=== PATIENT | male | born 1945 | race Two or more races ===

== ENCOUNTER → 2020-04-25 | Outpatient (CLI) | payer OTHER ==
[2020-04-25 11:53] LABS: Basophils # (auto) 0 10 ^3/uL (0-0.2); Basophils % (auto) 0.6 % (0.0-2.0); Eosinophils # (auto) 0 10 ^3/uL (0-0.8); Eosinophils % (auto) 0.5 % (0.0-7.0); Hematocrit 41.2 % (41.0-53.0); Hemoglobin 14.1 g/dL (13.5-17.5); Lymphocytes # (auto) 1.9 10 ^3/uL (0.4-5.4); Lymphocytes % (auto) 26.6 % (10.0-50.0); Mean Corpuscular Hemoglobin 30.6 pg (28.0-32.0); Mean Corpuscular Hgb Conc. 34.3 g/dL (32.0-36.0); Mean Corpuscular Volume 89.5 fL (80.0-100.0); Monocytes # (auto) 0.3 10 ^3/uL (0-1.3); Monocytes % (auto) 4.7 % (0.0-12.0); Neutrophils # (auto) 4.7 10 ^3/uL (1.6-8.6); Neutrophils % (auto) 67.6 % (37.0-80.0); Nucleated Red Blood Cells % 0.1 %; Platelet Count (auto) 285 10^3/uL (140-450); Red Blood Cells 4.61 10^6/uL (4.5-5.90); Red Cell Distribution Width 14.4 % (11.8-14.3)
[2020-04-25 12:29] LABS: Potassium 4.1 mmol/L (3.5-5.1)
[2020-04-25 12:47] LABS: Albumin 3.8 g/dL (3.4-5.0); BUN/Creatinine Ratio 11.4; Bilirubin, Total 0.8 mg/dL (0.2-1.0); Calcium 8.9 mg/dL (8.5-10.1); Total Protein 7.8 g/dL (6.4-8.2)
[2020-04-26 11:21] LABS: Urine Bacteria NONE SEEN /hpf (None Seen); Urine Blood Negative /uL (Negative); Urine Specific Gravity 1.007 (1.001-1.035); Urine Sperm PRESENT /hpf (None Seen); Urine WBC 2 /hpf (0 - 3)
== END | disposition home or self-care (01) ==
LOC: LAB 11:33
PROVIDERS: ATTEND Internal Medicine
DX: Z12.5 Encounter for screening for malignant neoplasm of prostate (principal); I10 Essential (primary) hypertension; E11.9 Type 2 diabetes mellitus without complications; E78.5 Hyperlipidemia, unspecified
CPT/HCPCS: 36415; 80053; 80061; 81001; 82150; 82270; 83036; 83690; 84153; 84443; 85025

== ENCOUNTER → 2020-08-19 | Outpatient (CLI) | payer OTHER | END | disposition home or self-care (01) | LOC: LAB 15:37 | PROVIDERS: ATTEND Internal Medicine | DX: R73.03 Prediabetes (principal) | CPT/HCPCS: 36415; 83036 ==

== ENCOUNTER 2020-09-02 11:02 | Day surgery (SDC) | payer OTHER ==
[2020-08-30 11:02] LABS: Basophils # (auto) 0 10 ^3/uL (0-0.2); Basophils % (auto) 0.6 % (0.0-2.0); Eosinophils # (auto) 0.1 10 ^3/uL (0-0.8); Eosinophils % (auto) 1.1 % (0.0-7.0); Hematocrit 41.5 % (41.0-53.0); Hemoglobin 14.5 g/dL (13.5-17.5); Lymphocytes # (auto) 2.7 10 ^3/uL (0.4-5.4); Lymphocytes % (auto) 37.5 % (10.0-50.0); Mean Corpuscular Hgb Conc. 34.9 g/dL (32.0-36.0); Mean Corpuscular Volume 88.8 fL (80.0-100.0); Monocytes # (auto) 0.4 10 ^3/uL (0-1.3); Neutrophils % (auto) 54.8 % (37.0-80.0); Nucleated Red Blood Cells % 0.2 %; Platelet Count (auto) 229 10^3/uL (140-450); Red Blood Cells 4.67 10^6/uL (4.5-5.90); Red Cell Distribution Width 14.6 % (11.8-14.3); White Blood Cell 7.3 10^3/uL (4.4-10.8)
[2020-08-30 11:14] LABS: INR 1.02 (0.9-1.15); Partial Thromboplastin Time 29.6 sec (23.0-31.2)
[2020-08-30 11:25] LABS: Albumin 3.8 g/dL (3.4-5.0); Calcium 9.1 mg/dL (8.5-10.1); Potassium 4.2 mmol/L (3.5-5.1)
[2020-08-30 11:28] LABS: BUN/Creatinine Ratio 16.8; Bilirubin, Total 1.1 mg/dL (0.2-1.0); Total Protein 7.8 g/dL (6.4-8.2)
[~2020-09-02] VITALS: Ht 165.1 cm; Wt 77.1 kg
[~2020-09-02 11:02] MED LIST: TRAZ150T84 PO
[2020-09-02] MEDS: fentaNYL CITRATE 100 MCG/2 ML VL ONE ×2 (12:28→12:32)
[2020-09-02] MEDS: MIDAZOLAM HCL 5 MG/ML-1ML VIAL ONE ×2 (12:28→12:32)
[2020-09-02] MEDS: diphenhdrAMINE HCL 50 MG/1 ML VL ONE ×2 (12:28→12:32)
[2020-09-02 13:21] VITALS: BP 111/72
== END 2020-09-02 13:30 | disposition home or self-care (01) ==
LOC: GI 11:02
PROVIDERS: ATTEND Internal Medicine Gastroenterology
DX: K59.02 Outlet dysfunction constipation (principal); D12.5 Benign neoplasm of sigmoid colon; K64.8 Other hemorrhoids; H26.9 Unspecified cataract; Z20.822 Contact with and (suspected) exposure to COVID-19; Z86.010 Personal history of colon polyps; Z79.899 Other long term (current) drug therapy; Z98.890 Other specified postprocedural states
CPT/HCPCS: 36415; 45385; 80053; 85025; 85610; 85730; J1200; J2250; J3010; J7030; U0003; 99152

== ENCOUNTER → 2020-12-19 | Outpatient (CLI) | payer OTHER ==
[2020-12-19 09:17] LABS: Albumin 3.6 g/dL (3.4-5.0)
[2020-12-19 09:23] LABS: Bilirubin, Direct 0.2 mg/dL (0-0.2); Bilirubin, Total 0.7 mg/dL (0.2-1.0); Total Protein 7.4 g/dL (6.4-8.2)
== END | disposition home or self-care (01) ==
LOC: LAB 08:27
PROVIDERS: ATTEND Internal Medicine
DX: E78.5 Hyperlipidemia, unspecified (principal)
CPT/HCPCS: 36415; 80076

== ENCOUNTER → 2021-02-15 | Outpatient (CLI) | payer OTHER ==
[2021-02-15 10:30] LABS: Albumin 3.4 g/dL (3.4-5.0); Bilirubin, Direct 0.2 mg/dL (0-0.2); Total Protein 7.1 g/dL (6.4-8.2)
== END | disposition home or self-care (01) ==
LOC: LAB 08:12
PROVIDERS: ATTEND Internal Medicine
DX: E78.5 Hyperlipidemia, unspecified (principal); R73.03 Prediabetes
CPT/HCPCS: 36415; 80061; 80076; 83036

== ENCOUNTER → 2021-04-03 | Outpatient (CLI) | payer OTHER ==
[2021-04-03 09:24] LABS: Albumin 3.9 g/dL (3.4-5.0); Calcium 8.7 mg/dL (8.5-10.1); Potassium 4.3 mmol/L (3.5-5.1)
[2021-04-03 09:28] LABS: BUN/Creatinine Ratio 9.5; Bilirubin, Total 0.8 mg/dL (0.2-1.0); Total Protein 7.2 g/dL (6.4-8.2)
== END | disposition home or self-care (01) ==
LOC: LAB 08:38
PROVIDERS: ATTEND Internal Medicine
DX: E78.5 Hyperlipidemia, unspecified (principal); R73.03 Prediabetes; R79.89 Other specified abnormal findings of blood chemistry
CPT/HCPCS: 36415; 80053; 80061; 83036

== ENCOUNTER → 2021-05-29 | Outpatient (CLI) | payer OTHER ==
[2021-05-29 10:45] LABS: Potassium 3.8 mmol/L (3.5-5.1)
[2021-05-29 11:00] LABS: Albumin 3.5 g/dL (3.4-5.0); BUN/Creatinine Ratio 13.5; Calcium 8.6 mg/dL (8.5-10.1)
[2021-05-29 11:04] LABS: Bilirubin, Total 0.8 mg/dL (0.2-1.0); Total Protein 6.9 g/dL (6.4-8.2)
== END | disposition home or self-care (01) ==
LOC: LAB 08:34
PROVIDERS: ATTEND Internal Medicine
DX: R73.03 Prediabetes (principal); R79.89 Other specified abnormal findings of blood chemistry
CPT/HCPCS: 36415; 80053; 80061; 83036

== ENCOUNTER → 2021-06-23 | Outpatient (CLI) | payer OTHER ==
[2021-06-23 11:32] LABS: Calcium 8.9 mg/dL (8.5-10.1); Potassium 3.8 mmol/L (3.5-5.1)
[2021-06-23 11:35] LABS: Albumin 3.8 g/dL (3.4-5.0); BUN/Creatinine Ratio 10.8; Phosphorus 2.6 mg/dL (2.5-4.90)
== END | disposition home or self-care (01) ==
LOC: LAB 09:45
PROVIDERS: ATTEND Internal Medicine
DX: Z12.11 Encounter for screening for malignant neoplasm of colon (principal); E78.5 Hyperlipidemia, unspecified
CPT/HCPCS: 36415; 80069

== ENCOUNTER 2021-08-15 15:54 | Emergency (ER) | payer OTHER ==
[~2021-08-15] VITALS: Ht 165.1 cm; Wt 81.6 kg
[2021-08-15 16:03] VITALS: BP 126/74
[2021-08-15 18:37] LABS: Basophils # (auto) 0 10 ^3/uL (0-0.2); Basophils % (auto) 0.2 % (0.0-2.0); Eosinophils # (auto) 0 10 ^3/uL (0-0.8); Hematocrit 40.9 % (41.0-53.0); Lymphocytes # (auto) 0.8 10 ^3/uL (0.4-5.4); Lymphocytes % (auto) 6.3 % (10.0-50.0); Mean Corpuscular Hemoglobin 30.6 pg (28.0-32.0); Mean Corpuscular Hgb Conc. 34.3 g/dL (32.0-36.0); Mean Corpuscular Volume 89.3 fL (80.0-100.0); Monocytes # (auto) 0.5 10 ^3/uL (0-1.3); Monocytes % (auto) 4.3 % (0.0-12.0); Neutrophils # (auto) 11.5 10 ^3/uL (1.6-8.6); Neutrophils % (auto) 89.2 % (37.0-80.0); Nucleated Red Blood Cells % 0.1 %; Red Blood Cells 4.58 10^6/uL (4.5-5.90); Red Cell Distribution Width 13.9 % (11.8-14.3); White Blood Cell 12.8 10^3/uL (4.4-10.8)
[2021-08-15 18:52] LABS: Albumin 3.7 g/dL (3.4-5.0); Calcium 8.9 mg/dL (8.5-10.1); Potassium 4.3 mmol/L (3.5-5.1)
[2021-08-15 18:56] LABS: Bilirubin, Total 1.4 mg/dL (0.2-1.0); Total Protein 7.7 g/dL (6.4-8.2)
[2021-08-15 19:28] LABS: BUN/Creatinine Ratio 13.2
== END 2021-08-15 20:26 | disposition left against medical advice (07) ==
LOC: ER 15:54
DX: K85.90 Acute pancreatitis without necrosis or infection, unspecified (principal); E11.9 Type 2 diabetes mellitus without complications; E78.5 Hyperlipidemia, unspecified; Z90.49 Acquired absence of other specified parts of digestive tract
CPT/HCPCS: 36415; 71045; 74176; 80053; 83690; 84484; 85025; 93005

== ENCOUNTER → 2021-08-16 | Outpatient (CLI) | payer OTHER ==
[2021-08-16 13:49] LABS: Basophils # (auto) 0.2 10 ^3/uL (0-0.2); Basophils % (auto) 1.9 % (0.0-2.0); Eosinophils # (auto) 0 10 ^3/uL (0-0.8); Eosinophils % (auto) 0.3 % (0.0-7.0); Hematocrit 38.6 % (41.0-53.0); Hemoglobin 13.4 g/dL (13.5-17.5); Lymphocytes # (auto) 1.3 10 ^3/uL (0.4-5.4); Lymphocytes % (auto) 11.9 % (10.0-50.0); Mean Corpuscular Hemoglobin 30.6 pg (28.0-32.0); Mean Corpuscular Hgb Conc. 34.6 g/dL (32.0-36.0); Mean Corpuscular Volume 88.4 fL (80.0-100.0); Monocytes # (auto) 0.6 10 ^3/uL (0-1.3); Monocytes % (auto) 6.2 % (0.0-12.0); Neutrophils # (auto) 8.4 10 ^3/uL (1.6-8.6); Neutrophils % (auto) 79.7 % (37.0-80.0); Red Blood Cells 4.37 10^6/uL (4.5-5.90); White Blood Cell 10.5 10^3/uL (4.4-10.8)
[2021-08-16 14:18] LABS: Calcium 8.3 mg/dL (8.5-10.1); Potassium 4.2 mmol/L (3.5-5.1)
[2021-08-16 14:24] LABS: Albumin 3.6 g/dL (3.4-5.0); BUN/Creatinine Ratio 10.4; Bilirubin, Total 5.4 mg/dL (0.2-1.0); Total Protein 7.4 g/dL (6.4-8.2)
== END | disposition home or self-care (01) ==
LOC: LAB 13:35
PROVIDERS: ATTEND Internal Medicine
DX: R10.9 Unspecified abdominal pain (principal)
CPT/HCPCS: 36415; 80053; 82150; 83690; 85025

== ENCOUNTER → 2021-08-16 | Emergency (ER) | payer OTHER ==
[~2021-08-16] VITALS: Ht 165.1 cm; Wt 81.6 kg
[2021-08-16 06:28] VITALS: BP 111/58
== END | disposition left against medical advice (07) ==
LOC: ER 06:17
DX: R10.9 Unspecified abdominal pain (principal); Z53.21 Procedure and treatment not carried out due to patient leaving prior to being seen by health care provider
CPT/HCPCS: 93005

== ENCOUNTER → 2021-08-17 | Outpatient (CLI) | payer OTHER ==
[2021-08-17 08:45] LABS: INR 1.2 (0.9-1.15)
[2021-08-17 09:14] LABS: Albumin 3.7 g/dL (3.4-5.0); Bilirubin, Direct 1.1 mg/dL (0-0.2)
[2021-08-17 09:17] LABS: Bilirubin, Total 3.1 mg/dL (0.2-1.0); Total Protein 7.7 g/dL (6.4-8.2)
== END | disposition home or self-care (01) ==
LOC: LAB 08:09
PROVIDERS: ATTEND Internal Medicine
DX: R79.89 Other specified abnormal findings of blood chemistry (principal)
CPT/HCPCS: 36415; 80076; 85610

== ENCOUNTER → 2021-08-18 | Outpatient (CLI) | payer OTHER ==
[2021-08-18 08:32] LABS: INR 1.1 (0.9-1.15); Partial Thromboplastin Time 28.7 sec (23.6-33.0)
[2021-08-18 09:04] LABS: Albumin 3.5 g/dL (3.4-5.0)
[2021-08-18 09:08] LABS: Bilirubin, Direct 0.6 mg/dL (0-0.2); Bilirubin, Total 1.6 mg/dL (0.2-1.0); Total Protein 7.6 g/dL (6.4-8.2)
== END | disposition home or self-care (01) ==
LOC: LAB 08:02
PROVIDERS: ATTEND Internal Medicine
DX: R79.89 Other specified abnormal findings of blood chemistry (principal)
CPT/HCPCS: 36415; 80076; 85610; 85730

== ENCOUNTER → 2021-08-22 | Outpatient (CLI) | payer OTHER ==
[2021-08-22 09:48] LABS: Albumin 3.5 g/dL (3.4-5.0)
[2021-08-22 09:53] LABS: Bilirubin, Direct 0.3 mg/dL (0-0.2); Bilirubin, Total 0.9 mg/dL (0.2-1.0); Total Protein 7.6 g/dL (6.4-8.2)
== END | disposition home or self-care (01) ==
LOC: LAB 08:16
PROVIDERS: ATTEND Internal Medicine
DX: R79.89 Other specified abnormal findings of blood chemistry (principal)
CPT/HCPCS: 36415; 80076; 82150; 83690

== ENCOUNTER → 2021-09-04 | Outpatient (CLI) | payer OTHER ==
[2021-09-04 08:02] LABS: Albumin 3.6 g/dL (3.4-5.0)
[2021-09-04 08:22] LABS: Bilirubin, Direct 0.2 mg/dL (0-0.2); Bilirubin, Total 0.9 mg/dL (0.2-1.0); Total Protein 7.2 g/dL (6.4-8.2)
== END | disposition home or self-care (01) ==
LOC: LAB 06:33
PROVIDERS: ATTEND Internal Medicine
DX: R79.89 Other specified abnormal findings of blood chemistry (principal)
CPT/HCPCS: 36415; 80076; 82150; 83690

== ENCOUNTER → 2021-09-26 | Outpatient (CLI) | payer OTHER ==
[2021-09-26 09:18] LABS: Albumin 3.5 g/dL (3.4-5.0); Bilirubin, Direct 0.1 mg/dL (0-0.2); Bilirubin, Total 0.4 mg/dL (0.2-1.0); Total Protein 7.1 g/dL (6.4-8.2)
== END | disposition home or self-care (01) ==
LOC: LAB 06:54
PROVIDERS: ATTEND Internal Medicine
DX: R79.89 Other specified abnormal findings of blood chemistry (principal)
CPT/HCPCS: 36415; 80076; 82150; 83690

== ENCOUNTER → 2021-10-26 | Outpatient (CLI) | payer OTHER | END | disposition home or self-care (01) | LOC: LAB 06:35 | PROVIDERS: ATTEND Internal Medicine | DX: R73.03 Prediabetes (principal) | CPT/HCPCS: 36415; 82043; 83036; 84153 ==

== ENCOUNTER → 2022-04-23 | Outpatient (CLI) | payer OTHER ==
[2022-04-23 07:50] LABS: Albumin 3.7 g/dL (3.4-5.0); Potassium 3.8 mmol/L (3.5-5.1)
[2022-04-23 07:58] LABS: BUN/Creatinine Ratio 13.2; Bilirubin, Total 0.6 mg/dL (0.2-1.0); Calcium 8.5 mg/dL (8.5-10.1); Total Protein 7.1 g/dL (6.4-8.2)
== END | disposition home or self-care (01) ==
LOC: LAB 07:06
PROVIDERS: ATTEND Internal Medicine
DX: R73.03 Prediabetes (principal); E78.5 Hyperlipidemia, unspecified
CPT/HCPCS: 36415; 80053; 80061; 83036

== ENCOUNTER → 2022-05-11 | Outpatient (CLI) | payer OTHER ==
[2022-05-11 07:54] LABS: Albumin 3.6 g/dL (3.4-5.0); Bilirubin, Direct 0.2 mg/dL (0-0.2); Bilirubin, Total 1.3 mg/dL (0.2-1.0); Total Protein 7.2 g/dL (6.4-8.2)
== END | disposition home or self-care (01) ==
LOC: LAB 06:57
PROVIDERS: ATTEND Internal Medicine
DX: E78.5 Hyperlipidemia, unspecified (principal)
CPT/HCPCS: 36415; 80076

== ENCOUNTER → 2022-10-23 | Outpatient (CLI) | payer OTHER ==
[2022-10-23 08:59] LABS: Albumin 3.6 g/dL (3.4-5.0); Calcium 8.6 mg/dL (8.5-10.1); Potassium 3.8 mmol/L (3.5-5.1)
[2022-10-23 09:09] LABS: BUN/Creatinine Ratio 12.1 (10.0-20.0); Bilirubin, Total 1.1 mg/dL (0.2-1.0); Total Protein 7.4 g/dL (6.4-8.2)
== END | disposition home or self-care (01) ==
LOC: LAB 07:31
PROVIDERS: ATTEND Internal Medicine
DX: E11.9 Type 2 diabetes mellitus without complications (principal); E78.5 Hyperlipidemia, unspecified
CPT/HCPCS: 36415; 80053; 80061; 83036

== ENCOUNTER 2022-12-17 08:03 | Inpatient (IN) | payer OTHER ==
[~2022-12-17] VITALS: Ht 165.1 cm; Wt 75.2 kg
[2022-12-17 08:45] LABS: Basophils # (auto) 0.1 10 ^3/uL (0-0.2); Basophils % (auto) 0.6 % (0.0-2.0); Eosinophils # (auto) 0 10 ^3/uL (0-0.8); Eosinophils % (auto) 0.2 % (0.0-7.0); Hematocrit 40.6 % (41.0-53.0); Hemoglobin 13.7 g/dL (13.5-17.5); Lymphocytes # (auto) 1.6 10 ^3/uL (0.4-5.4); Mean Corpuscular Hemoglobin 29.8 pg (28.0-32.0); Mean Corpuscular Hgb Conc. 33.8 g/dL (32.0-36.0); Mean Corpuscular Volume 88.2 fL (80.0-100.0); Monocytes # (auto) 0.6 10 ^3/uL (0-1.3); Monocytes % (auto) 5.2 % (0.0-12.0); Neutrophils # (auto) 9.3 10 ^3/uL (1.6-8.6); Nucleated Red Blood Cells % 0.1 %; Red Cell Distribution Width 14.1 % (11.8-14.3); White Blood Cell 11.6 10^3/uL (4.4-10.8)
[2022-12-17 09:08] LABS: INR 1.1 (0.9-1.15); Partial Thromboplastin Time 28.4 SEC (24.5-34.5); Prothrombin Time 11.5 sec (9.3-11.8)
[2022-12-17 09:09] LABS: Alanine Aminotransferase 14 U/L (7-40); Alkaline Phosphatase 66 U/L (46-116); BUN/Creatinine Ratio 7.8 (10.0-20.0); Blood Urea Nitrogen 9 mg/dL (9-23); Calcium 8.8 mg/dL (8.5-10.1); Carbon Dioxide 28 mmol/L (20-30); Glucose 130 mg/dL (74-106)
[2022-12-17 09:10] LABS: Albumin 4.3 g/dL (3.2-4.8); Aspartate Aminotransferase 17 U/L (13-40); Bilirubin, Total 1.3 mg/dL (0.2-1.0); Total Protein 7.2 g/dL (5.7-8.2)
[2022-12-17 09:11] LABS: Urine Bacteria NONE SEEN /hpf (None Seen); Urine Blood TRACE /uL (Negative); Urine Clarity Clear (Clear); Urine Color Yellow (Yellow); Urine Mucus FEW (None Seen); Urine Protein, UAD TRACE (Negative); Urine Specific Gravity 1.021 (1.001-1.035); Urine Urobilinogen Normal (Negative); Urine WBC 2 /hpf (0 - 3); Urine pH 6.5 (5.0-8.0)
[2022-12-17] MEDS ORDERED: PANTOPRAZOLE 40 MG/10 ML VIAL INJ IV ONE (09:15)
[2022-12-17 10:00] LABS: Anion Gap 6 (5-15); Chloride 106 mmol/L (98-107); Potassium 3.3 mmol/L (3.5-5.1); Sodium 140 mmol/L (136-145)
[2022-12-17 10:16] VITALS: PULSE 82; RESP 19; O2SAT 96
[2022-12-17] MEDS ORDERED: MORPHINE SULFATE INJ 2 MG/ml SYRG IV PRN (12:45)
[2022-12-17] MEDS ORDERED: POTASSIUM CHL 20 Meq TABLET PO ONE (12:45)
[2022-12-17] MEDS ORDERED: NITROGLYCERIN 0.4 MG SL TAB SL PRN (12:45)
[2022-12-17] MEDS: SODIUM CHLOR 0.9% PF (SALINE LOCK) 10ML VIAL/SYR IV SCH ×2 (14:22→22:39)
[2022-12-17 16:25] VITALS: RESP 16
[2022-12-17 17:00] VITALS: BP 131/81; PULSE 82; RESP 20; TEMP 98.7; O2SAT 93
[2022-12-17 20:00] VITALS: PULSE 75; RESP 18; O2SAT 95
[2022-12-18 00:23] VITALS: BP 123/73; PULSE 75; RESP 18; TEMP 98.4; O2SAT 95
[2022-12-18] MEDS ORDERED: THROAT LOZENGES(CEPASTAT) MT PRN (00:45)
[2022-12-18 04:58] VITALS: BP 115/72; PULSE 79; RESP 18; TEMP 98.1; O2SAT 94
[2022-12-18] MEDS: SODIUM CHLOR 0.9% PF (SALINE LOCK) 10ML VIAL/SYR IV SCH ×2 (05:33→15:59)
[2022-12-18 08:00] VITALS: PULSE 84; RESP 16; O2SAT 93
[2022-12-18 09:00] VITALS: BP 124/72; PULSE 84; RESP 16; TEMP 98.2; O2SAT 93
[2022-12-18 09:04] LABS: Chloride 105 mmol/L (98-107); Potassium 3.8 mmol/L (3.5-5.1); Sodium 140 mmol/L (136-145)
[2022-12-18 09:05] LABS: Anion Gap 9 (5-15); Carbon Dioxide 26 mmol/L (20-30)
[2022-12-18 09:10] LABS: Blood Urea Nitrogen 11 mg/dL (9-23); Glucose 100 mg/dL (74-106)
[2022-12-18 09:16] LABS: Basophils # (auto) 0 10 ^3/uL (0-0.2); Basophils % (auto) 0.4 % (0.0-2.0); Eosinophils # (auto) 0 10 ^3/uL (0-0.8); Eosinophils % (auto) 0.4 % (0.0-7.0); Hematocrit 41.8 % (41.0-53.0); Hemoglobin 14.1 g/dL (13.5-17.5); Lymphocytes # (auto) 1.9 10 ^3/uL (0.4-5.4); Lymphocytes % (auto) 15.6 % (10.0-50.0); Mean Corpuscular Hemoglobin 29.7 pg (28.0-32.0); Mean Corpuscular Hgb Conc. 33.7 g/dL (32.0-36.0); Mean Corpuscular Volume 88.3 fL (80.0-100.0); Monocytes # (auto) 0.7 10 ^3/uL (0-1.3); Monocytes % (auto) 5.5 % (0.0-12.0); Neutrophils # (auto) 9.4 10 ^3/uL (1.6-8.6); Neutrophils % (auto) 78.1 % (37.0-80.0); Red Blood Cells 4.74 10^6/uL (4.5-5.90); Red Cell Distribution Width 14.2 % (11.8-14.3)
[2022-12-18 13:00] VITALS: BP 127/79; PULSE 88; RESP 16; TEMP 98.4; O2SAT 91
[2022-12-18] MEDS ORDERED: ATOR20TA50 PO (15:48)
[2022-12-18] MEDS ORDERED: METF-370 PO (15:48)
[2022-12-18] MEDS ORDERED: TRAZ1TAB12 PO (15:48)
[2022-12-18 17:00] VITALS: BP 140/88; PULSE 86; RESP 18; TEMP 98.5; O2SAT 94
== END 2022-12-18 23:42 | disposition left against medical advice (07) | DRG 379 ==
LOC: ER 08:03 → OVERFLOW 12:40 → WEST WING 15:47
PROVIDERS: ADMIT Internal Medicine Pulmonary Disease; ATTEND Internal Medicine Pulmonary Disease
DX: K92.2 Gastrointestinal hemorrhage, unspecified (principal); E11.65 Type 2 diabetes mellitus with hyperglycemia; E78.5 Hyperlipidemia, unspecified; I25.10 Atherosclerotic heart disease of native coronary artery without angina pectoris; D72.829 Elevated white blood cell count, unspecified; N40.0 Benign prostatic hyperplasia without lower urinary tract symptoms; K64.9 Unspecified hemorrhoids; E87.6 Hypokalemia; R80.9 Proteinuria, unspecified; R31.9 Hematuria, unspecified; Z82.3 Family history of stroke; Z82.49 Family history of ischemic heart disease and other diseases of the circulatory system; Z90.49 Acquired absence of other specified parts of digestive tract; Z53.29 Procedure and treatment not carried out because of patient's decision for other reasons
CPT/HCPCS: 36415; 71045; 74176; 80048; 80053; 81001; 82270; 82962; 84484; 85025; 85610; 85730; 93005; 96374; 97163; C9113; G0378

== ENCOUNTER → 2023-01-04 | Outpatient (CLI) | payer OTHER ==
[~2023-01-04] MED LIST changes: +ATOR20TA50 PO; +METF-370 PO; -TRAZ150T84 PO; +TRAZ1TAB12 PO
[2023-01-04 08:15] LABS: Creatinine, Urine 137.48 mg/dL (30.0-125.0)
[2023-01-04 08:17] LABS: Cholesterol 112 mg/dL (< 200); LDL Cholesterol 60 mg/dL (< 100); Triglycerides 132 mg/dL (< 150)
[2023-01-04 08:19] LABS: HDL Cholesterol 35 mg/dL (40-59)
== END | disposition home or self-care (01) ==
LOC: LAB 07:24
PROVIDERS: ATTEND Internal Medicine
DX: E78.5 Hyperlipidemia, unspecified (principal); R73.03 Prediabetes
CPT/HCPCS: 36415; 80061; 82043; 82570; 84153

== ENCOUNTER → 2023-02-06 | Day surgery (SDC) | payer OTHER ==
[2023-02-04 12:24] LABS: Basophils # (auto) 0.1 10 ^3/uL (0-0.2); Basophils % (auto) 0.8 % (0.0-2.0); Eosinophils # (auto) 0 10 ^3/uL (0-0.8); Eosinophils % (auto) 0.6 % (0.0-7.0); Hematocrit 43.2 % (41.0-53.0); Hemoglobin 14.3 g/dL (13.5-17.5); Lymphocytes # (auto) 2.3 10 ^3/uL (0.4-5.4); Lymphocytes % (auto) 31.1 % (10.0-50.0); Mean Corpuscular Hgb Conc. 33.1 g/dL (32.0-36.0); Mean Corpuscular Volume 90.6 fL (80.0-100.0); Monocytes # (auto) 0.4 10 ^3/uL (0-1.3); Monocytes % (auto) 5.8 % (0.0-12.0); Neutrophils # (auto) 4.5 10 ^3/uL (1.6-8.6); Neutrophils % (auto) 61.7 % (37.0-80.0); Nucleated Red Blood Cells % 0.1 %; Red Blood Cells 4.77 10^6/uL (4.5-5.90); Red Cell Distribution Width 14.3 % (11.8-14.3); White Blood Cell 7.3 10^3/uL (4.4-10.8)
[2023-02-04 13:01] LABS: Alanine Aminotransferase 20 U/L (7-40); Albumin 4.4 g/dL (3.2-4.8); Alkaline Phosphatase 74 U/L (46-116); Anion Gap 5 (5-15); Aspartate Aminotransferase 21 U/L (13-40); BUN/Creatinine Ratio 9.8 (10.0-20.0); Bilirubin, Total 0.8 mg/dL (0.2-1.0); Blood Urea Nitrogen 11 mg/dL (9-23); Calcium 9.3 mg/dL (8.5-10.1); Carbon Dioxide 30 mmol/L (20-30); Chloride 107 mmol/L (98-107); Glucose 91 mg/dL (74-106); Potassium 4.3 mmol/L (3.5-5.1); Sodium 142 mmol/L (136-145); Total Protein 7.1 g/dL (5.7-8.2)
[2023-02-04 13:43] LABS: INR 1.06 (0.9-1.15); Partial Thromboplastin Time 28.6 SEC (24.5-34.5); Prothrombin Time 11.3 sec (9.3-11.8)
[~2023-02-06] VITALS: Ht 165.1 cm; Wt 68.0 kg
[~2023-02-06] MED LIST changes: +SODIUM CHLORIDE LOCK 10 ML ONE
[2023-02-06 16:53] VITALS: O2SAT 93
[2023-02-06] MEDS: fentaNYL CITRATE 100 MCG/2 ML VL ONE ×2 (16:56→17:04)
[2023-02-06] MEDS: MIDAZOLAM HCL 5 MG/ML-1ML VIAL ONE ×2 (16:56→17:04)
[2023-02-06] MEDS: diphenhdrAMINE HCL 50 MG/1 ML VL ONE ×2 (16:56→16:59)
[2023-02-06 18:10] VITALS: BP 124/73; PULSE 70; RESP 13; TEMP 97.7; O2SAT 94
== END | disposition home or self-care (01) ==
LOC: GI 14:30
PROVIDERS: ATTEND Internal Medicine Gastroenterology
DX: K62.5 Hemorrhage of anus and rectum (principal); K59.00 Constipation, unspecified; Z86.010 Personal history of colon polyps; K64.0 First degree hemorrhoids; K63.5 Polyp of colon; E78.5 Hyperlipidemia, unspecified; R73.03 Prediabetes; Z98.41 Cataract extraction status, right eye; Z98.42 Cataract extraction status, left eye
CPT/HCPCS: 36415; 45380; 80053; 82962; 85025; 85610; 85730; J1200; J2250; J3010; J7030; 99152

== ENCOUNTER 2023-02-08 09:58 | Day surgery (SDC) | payer OTHER ==
[~2023-02-08] VITALS: Ht 165.1 cm; Wt 68.0 kg
[~2023-02-08 09:58] MED LIST changes: -SODIUM CHLORIDE LOCK 10 ML ONE
[2023-02-08] MEDS ORDERED: diphenhdrAMINE HCL 50 MG/1 ML VL ONE (10:31)
[2023-02-08] MEDS ORDERED: SODIUM CHLORIDE LOCK 10 ML ONE (10:31)
[2023-02-08] MEDS ORDERED: LIDOCAINE VISCOUS 2% 15ML UD ONE (10:32)
[2023-02-08] MEDS ORDERED: MIDAZOLAM HCL 5 MG/ML-1ML VIAL ONE (10:32)
[2023-02-08] MEDS ORDERED: fentaNYL CITRATE 100 MCG/2 ML VL ONE (10:32)
[2023-02-08 10:50] VITALS: PULSE 83; RESP 16; O2SAT 98
[2023-02-08 11:10] VITALS: TEMP 98; O2SAT 96
[2023-02-08 11:47] VITALS: BP 104/71; PULSE 62; RESP 12; O2SAT 96
== END 2023-02-08 11:59 | disposition home or self-care (01) ==
LOC: GI 09:58
PROVIDERS: ATTEND Internal Medicine Gastroenterology
DX: R10.13 Epigastric pain (principal); K20.80 Other esophagitis without bleeding; K29.50 Unspecified chronic gastritis without bleeding; K31.89 Other diseases of stomach and duodenum; K25.9 Gastric ulcer, unspecified as acute or chronic, without hemorrhage or perforation; K44.9 Diaphragmatic hernia without obstruction or gangrene; E78.5 Hyperlipidemia, unspecified; G47.00 Insomnia, unspecified; Z82.3 Family history of stroke; Z82.49 Family history of ischemic heart disease and other diseases of the circulatory system; Z79.84 Long term (current) use of oral hypoglycemic drugs; Z79.899 Other long term (current) drug therapy; Z98.890 Other specified postprocedural states
CPT/HCPCS: 43239; 88305; 88312; 88342; J1200; J2250; J3010; J7030

== ENCOUNTER → 2023-06-10 | Outpatient (CLI) | payer OTHER ==
[2023-06-10 09:19] LABS: Alanine Aminotransferase 21 U/L (7-40); Alkaline Phosphatase 84 U/L (46-116); Anion Gap 5 (5-15); Calcium 9.4 mg/dL (8.5-10.1); Carbon Dioxide 30 mmol/L (20-30); Chloride 105 mmol/L (98-107); Glucose 117 mg/dL (74-106); Potassium 4.2 mmol/L (3.5-5.1); Sodium 140 mmol/L (136-145)
[2023-06-10 09:20] LABS: BUN/Creatinine Ratio 10.1 (10.0-20.0); Blood Urea Nitrogen 12 mg/dL (9-23)
[2023-06-10 09:21] LABS: Albumin 4.5 g/dL (3.2-4.8); Aspartate Aminotransferase 24 U/L (13-40)
[2023-06-10 09:22] LABS: Total Protein 6.9 g/dL (5.7-8.2)
[2023-06-10 09:25] LABS: Creatinine, Urine 242.6 mg/dL (30.0-125.0)
== END | disposition home or self-care (01) ==
LOC: LAB 08:18
PROVIDERS: ATTEND Internal Medicine
DX: E11.69 Type 2 diabetes mellitus with other specified complication (principal)
CPT/HCPCS: 36415; 80053; 82043; 82570; 83036; 84153

== ENCOUNTER → 2023-10-15 | Outpatient (CLI) | payer OTHER ==
[2023-10-15 07:57] LABS: Triglycerides 318 mg/dL (< 150)
[2023-10-15 07:58] LABS: LDL Cholesterol 97 mg/dL (< 100)
[2023-10-15 07:59] LABS: Cholesterol 180 mg/dL (< 200); HDL Cholesterol 32 mg/dL (40-59)
== END | disposition home or self-care (01) ==
LOC: LAB 07:17
PROVIDERS: ATTEND Internal Medicine
DX: Z12.11 Encounter for screening for malignant neoplasm of colon (principal); E78.5 Hyperlipidemia, unspecified
CPT/HCPCS: 36415; 80061; 84153

== ENCOUNTER → 2023-10-23 | Outpatient (CLI) | payer OTHER | END | disposition home or self-care (01) | LOC: LAB 09:46 | PROVIDERS: ATTEND Internal Medicine | DX: Z12.11 Encounter for screening for malignant neoplasm of colon (principal); E78.5 Hyperlipidemia, unspecified | CPT/HCPCS: 82270 ==

== ENCOUNTER → 2024-02-11 | Outpatient (CLI) | payer OTHER ==
[2024-02-11 07:33] LABS: Triglycerides 187 mg/dL (< 150)
[2024-02-11 07:34] LABS: LDL Cholesterol 83 mg/dL (< 100)
[2024-02-11 07:35] LABS: Cholesterol 140 mg/dL (< 200); HDL Cholesterol 31 mg/dL (40-59)
== END | disposition home or self-care (01) ==
LOC: LAB 06:27
PROVIDERS: ATTEND Internal Medicine
DX: E11.9 Type 2 diabetes mellitus without complications (principal); E78.5 Hyperlipidemia, unspecified; Z79.899 Other long term (current) drug therapy
CPT/HCPCS: 36415; 80061; 83036; 84153

== ENCOUNTER → 2024-03-24 | Outpatient (CLI) | payer OTHER ==
[2024-03-24 10:29] LABS: Urine Bacteria None Seen /hpf (None Seen)
[2024-03-24 10:53] LABS: Urine Blood 2+ /uL (Negative); Urine Budding Yeast OCCASIONAL /hpf (None Seen); Urine Clarity Clear (Clear); Urine Color Yellow (Yellow); Urine Mucus FEW (None Seen); Urine Protein, UAD 2+ (Negative); Urine Specific Gravity 1.032 (1.001-1.035); Urine Squamous Epithelial Cell None Seen /hpf (<5); Urine Urobilinogen Normal (Negative); Urine WBC 1 /hpf (0 - 3)
[2024-03-24 10:57] LABS: Albumin 4.6 g/dL (3.2-4.8); Alkaline Phosphatase 87 U/L (46-116); Amylase 87 U/L (30-118); Anion Gap 7 (5-15); BUN/Creatinine Ratio 8.9 (10.0-20.0); Bilirubin, Total 0.6 mg/dL (0.2-1.0); Blood Urea Nitrogen 12 mg/dL (9-23); Calcium 9.3 mg/dL (8.7-10.4); Carbon Dioxide 25 mmol/L (20-31); Chloride 100 mmol/L (98-107); Lipase 48 U/L (12-53); Potassium 3.9 mmol/L (3.5-5.1); Total Protein 7.7 g/dL (5.7-8.2)
[2024-03-24 11:00] LABS: Basophils # (auto) 0 10 ^3/uL (0-0.2); Basophils % (auto) 0.2 % (0.0-2.0); Eosinophils # (auto) 0 10 ^3/uL (0-0.8); Hematocrit 42.8 % (41.0-53.0); Hemoglobin 14.6 g/dL (13.5-17.5); Lymphocytes # (auto) 1.1 10 ^3/uL (0.4-5.4); Lymphocytes % (auto) 15.1 % (10.0-50.0); Mean Corpuscular Hemoglobin 30.4 pg (28.0-32.0); Mean Corpuscular Hgb Conc. 34.1 g/dL (32.0-36.0); Mean Corpuscular Volume 89.3 fL (80.0-100.0); Monocytes # (auto) 0.6 10 ^3/uL (0-1.3); Monocytes % (auto) 8.1 % (0.0-12.0); Neutrophils # (auto) 5.6 10 ^3/uL (1.6-8.6); Neutrophils % (auto) 76.6 % (37.0-80.0); Nucleated Red Blood Cells % 0.1 %; Platelet Count (auto) 219 10^3/uL (140-450); Red Blood Cells 4.79 10^6/uL (4.5-5.90); Red Cell Distribution Width 14.3 % (11.8-14.3); White Blood Cell 7.3 10^3/uL (4.4-10.8)
[2024-03-24 11:14] LABS: Alanine Aminotransferase 43 U/L (7-40); Aspartate Aminotransferase 56 U/L (13-40); Glucose 119 mg/dL (74-106); Sodium 132 mmol/L (136-145)
== END | disposition home or self-care (01) ==
LOC: LAB 10:16
PROVIDERS: ATTEND Internal Medicine
DX: R10.9 Unspecified abdominal pain (principal)
CPT/HCPCS: 36415; 80053; 81001; 82150; 83690; 85025

== ENCOUNTER → 2024-03-27 | Outpatient (CLI) | payer OTHER ==
[2024-03-27 11:26] LABS: Basophils # (auto) 0 10 ^3/uL (0-0.2); Basophils % (auto) 0.9 % (0.0-2.0); Eosinophils # (auto) 0 10 ^3/uL (0-0.8); Hematocrit 41.9 % (41.0-53.0); Hemoglobin 14.5 g/dL (13.5-17.5); Lymphocytes % (auto) 39.6 % (10.0-50.0); Mean Corpuscular Hemoglobin 30.2 pg (28.0-32.0); Mean Corpuscular Hgb Conc. 34.5 g/dL (32.0-36.0); Mean Corpuscular Volume 87.4 fL (80.0-100.0); Monocytes # (auto) 0.6 10 ^3/uL (0-1.3); Monocytes % (auto) 12.2 % (0.0-12.0); Neutrophils # (auto) 2.3 10 ^3/uL (1.6-8.6); Neutrophils % (auto) 47.3 % (37.0-80.0); Nucleated Red Blood Cells % 0.7 %; Platelet Count (auto) 199 10^3/uL (140-450); Red Cell Distribution Width 14.6 % (11.8-14.3); White Blood Cell 4.9 10^3/uL (4.4-10.8)
[2024-03-27 11:52] LABS: Albumin 4.2 g/dL (3.2-4.8); Alkaline Phosphatase 83 U/L (46-116); Anion Gap 8 (5-15); Bilirubin, Total 0.5 mg/dL (0.2-1.0); Calcium 9.4 mg/dL (8.7-10.4); Carbon Dioxide 26 mmol/L (20-31); Chloride 101 mmol/L (98-107); Total Protein 7.1 g/dL (5.7-8.2)
[2024-03-27 12:12] LABS: Alanine Aminotransferase 76 U/L (7-40); Aspartate Aminotransferase 91 U/L (13-40); Blood Urea Nitrogen 9 mg/dL (9-23); Glucose 113 mg/dL (74-106); Potassium 3.4 mmol/L (3.5-5.1); Sodium 135 mmol/L (136-145)
== END | disposition home or self-care (01) ==
LOC: LAB 10:20
PROVIDERS: ATTEND Internal Medicine
DX: R79.89 Other specified abnormal findings of blood chemistry (principal); R31.29 Other microscopic hematuria
CPT/HCPCS: 36415; 80053; 85025

== ENCOUNTER → 2024-04-09 | Outpatient (CLI) | payer OTHER ==
[2024-04-09 10:33] LABS: Anion Gap 6 (5-15); Carbon Dioxide 28 mmol/L (20-31); Chloride 105 mmol/L (98-107); Potassium 4.2 mmol/L (3.5-5.1); Sodium 139 mmol/L (136-145)
[2024-04-09 10:34] LABS: Calcium 9.4 mg/dL (8.7-10.4)
[2024-04-09 10:39] LABS: Blood Urea Nitrogen 9 mg/dL (9-23); Glucose 100 mg/dL (74-106)
== END | disposition home or self-care (01) ==
LOC: LAB 09:36
PROVIDERS: ATTEND Internal Medicine
DX: E78.6 Lipoprotein deficiency (principal)
CPT/HCPCS: 36415; 80048; 84153

== ENCOUNTER → 2024-05-12 | Outpatient (CLI) | payer OTHER ==
[2024-05-12 07:51] LABS: Anion Gap 8 (5-15); Carbon Dioxide 27 mmol/L (20-31); Chloride 105 mmol/L (98-107); Potassium 3.8 mmol/L (3.5-5.1); Sodium 140 mmol/L (136-145)
[2024-05-12 07:52] LABS: Calcium 9.4 mg/dL (8.7-10.4)
[2024-05-12 07:58] LABS: BUN/Creatinine Ratio 9.5 (10.0-20.0); Blood Urea Nitrogen 11 mg/dL (9-23); Glucose 95 mg/dL (74-106)
[2024-05-12 16:19] LABS: Creatinine, Urine 100.93 mg/dL (30.0-125.0)
== END | disposition home or self-care (01) ==
LOC: LAB 06:26
PROVIDERS: ATTEND Internal Medicine
DX: N40.1 Benign prostatic hyperplasia with lower urinary tract symptoms (principal); E11.69 Type 2 diabetes mellitus with other specified complication; Z00.00 Encounter for general adult medical examination without abnormal findings
CPT/HCPCS: 36415; 80048; 82043; 82570; 84443

== ENCOUNTER → 2024-07-15 | Outpatient (CLI) | payer OTHER | END | disposition home or self-care (01) | LOC: LAB 07:11 | PROVIDERS: ATTEND Urology | DX: R97.20 Elevated prostate specific antigen [PSA] (principal) | CPT/HCPCS: 84153 ==

== ENCOUNTER 2024-10-06 06:44 | Outpatient (CLI) | payer OTHER ==
[2024-10-06 08:24] LABS: Cholesterol 140 mg/dL (< 200); Triglycerides 166 mg/dL (< 150)
[2024-10-06 08:25] LABS: HDL Cholesterol 32 mg/dL (40-59)
[2024-10-06 09:04] LABS: Prostate Specific Antigen 0.82 ng/mL (0.0-4.0)
== END 2024-10-06 17:00 | disposition home or self-care (01) ==
LOC: LAB 06:44
PROVIDERS: ATTEND Internal Medicine
DX: E11.22 Type 2 diabetes mellitus with diabetic chronic kidney disease (principal); N18.2 Chronic kidney disease, stage 2 (mild); K21.9 Gastro-esophageal reflux disease without esophagitis; K76.0 Fatty (change of) liver, not elsewhere classified; Z79.899 Other long term (current) drug therapy
CPT/HCPCS: 36415; 80061; 82306; 82607; 83036; 84153

== ENCOUNTER 2025-01-18 07:09 | Outpatient (CLI) | payer OTHER ==
[2025-01-18 07:47] LABS: Cholesterol 187 mg/dL (< 200)
[2025-01-18 08:00] LABS: Urine Protein, UAD Negative (Negative)
[2025-01-18 08:03] LABS: HDL Cholesterol 32 mg/dL (40-59); Triglycerides 317 mg/dL (< 150)
== END 2025-01-18 17:00 | disposition home or self-care (01) ==
LOC: LAB 07:09
PROVIDERS: ATTEND Internal Medicine
DX: E78.5 Hyperlipidemia, unspecified (principal); R73.03 Prediabetes; Z79.899 Other long term (current) drug therapy
CPT/HCPCS: 36415; 80061; 81001; 83036; 84153